=== PATIENT | female | born 1980 | race Caucasian/White ===

== ENCOUNTER 2017-06-05 08:03 | Emergency (ER) | payer MEDICAID ==
[~2017-06-05] VITALS: Ht 162.6 cm; Wt 51.0 kg
[~2017-06-05 08:03] MED LIST: LIPA1TAB3 PO; OXYC5TAB3 PO; SERT25TA3 PO; THYR30TA PO; THYR32.54 PO
[2017-06-05] MEDS ORDERED: SODIUM CHLORIDE 0.9% 1,000 ML IV ONE (08:35)
[2017-06-05] MEDS ORDERED: MORPHINE SULFATE 4 MG/ML, 1ML ONE (08:55)
[2017-06-05] MEDS ORDERED: ONDANSETRON 2MG/ML, 2ML ONE (08:55)
[2017-06-05 08:58] LABS: HEMATOCRIT 43.2 % (34.6-47.8); HEMOGLOBIN 14.8 g/dL (11.7-16.4); WHITE BLOOD COUNT 11.4 x10^3/uL (3.4-10)
[2017-06-05] MEDS ORDERED: SODIUM CHLORIDE 0.9% 1,000ML IVBOLUS ONE (09:00)
[2017-06-05] MEDS ORDERED: ONDANSETRON 2MG/ML, 2ML IVPush ONE (09:00)
[2017-06-05] MEDS ORDERED: MORPHINE SULFATE 4 MG/ML, 1ML IVPush PRN (09:00)
[2017-06-05 09:10] LABS: BLOOD UREA NITROGEN 10 mg/dL (7-18)
[2017-06-05 09:11] LABS: ASPARTATE AMINO TRANSFERASE 24 U/L (15-37)
[2017-06-05 10:39] VITALS: BP 97/52
== END 2017-06-05 10:41 | disposition home or self-care (01) ==
LOC: ED 08:43
DX: K29.00 Acute gastritis without bleeding (principal); E06.3 Autoimmune thyroiditis
CPT/HCPCS: 36415; 80053; 81001; 83690; 84703; 85025; 87086; 96361; 96374; 96375; 99285; J2405; J7030

== ENCOUNTER 2017-06-11 13:51 | Emergency (ER) | payer MEDICAID ==
[~2017-06-11] VITALS: Ht 162.6 cm; Wt 53.6 kg
[2017-06-11 14:55] LABS: BASOPHILS # (AUTO) 0.05 x10^3/uL (0-0.1); BASOPHILS % (AUTO) 1 % (0-1); EOSINOPHILS # (AUTO) 0.72 x10^3/uL (0-0.4); EOSINOPHILS % (AUTO) 8 % (1-7); LYMPHOCYTES # (AUTO) 2.07 x10^3/uL (1-3.4); LYMPHOCYTES % (AUTO) 24 % (22-44); MD NO; MEAN CORPUSCULAR HEMOGLOBIN 31.2 pg (27.0-34.8); MEAN CORPUSCULAR HGB CONC 33.7 g/dL (32.4-35.8); MEAN CORPUSCULAR VOLUME 92.7 fL (80-100); MEAN PLATELET VOLUME 7.6 fL (7.4-10.4); MONOCYTES # (AUTO) 0.34 x10^3/uL (0.2-0.8); MONOCYTES % (AUTO) 4 % (2-9); NEUTROPHILS % (AUTO) 64 % (42-75); PLATELET COUNT 335 x10^3/uL (130-400); RED BLOOD COUNT 4.67 x10^6/uL (3.82-5.3); RED CELL DISTRIBUTION WIDTH 13.6 % (9.6-15.2)
[2017-06-11] MEDS ORDERED: SODIUM CHLORIDE FLUSH 10ML SYR IVF ONE (15:00)
[2017-06-11 15:03] LABS: ANION GAP 6 mmol/L (5-15); CALCIUM 8.9 mg/dL (8.5-10.1); CHLORIDE 107 mmol/L (98-107)
[2017-06-11 15:07] LABS: ALANINE AMINOTRANSFERASE 32 U/L (12-78); ALKALINE PHOSPHATASE 83 U/L (45-117); BILIRUBIN,TOTAL 0.8 mg/dL (0.2-1.0); CREATININE 0.95 mg/dL (0.55-1.02)
[2017-06-11] MEDS ORDERED: FAMOTIDINE 20 MG/2 ML ONE (15:52)
[2017-06-11] MEDS ORDERED: DICYCLOMINE 10 MG/ML, 2ML ONE (15:52)
[2017-06-11] MEDS ORDERED: DICYCLOMINE 10 MG/ML, 2ML IM ONE (16:00)
[2017-06-11] MEDS ORDERED: SODIUM CHLORIDE 0.9% 1,000ML IVBOLUS ONE (16:00)
[2017-06-11] MEDS ORDERED: FAMOTIDINE 20 MG/2 ML IVP ONE (16:00)
[2017-06-11 16:03] LABS: MICROSCOPIC NOT IND
[2017-06-11 16:07] LABS: CULTURE INDICATED? NO
[2017-06-11] MEDS ORDERED: OMNIPAQUE 350 MG/ML, 100ML BOTTLE ONE (16:42)
[2017-06-11 18:14] VITALS: BP 95/62
== END 2017-06-11 18:17 | disposition home or self-care (01) ==
LOC: ED 17:38
DX: R10.84 Generalized abdominal pain (principal)
CPT/HCPCS: 36415; 74177; 76700; 80053; 81003; 83690; 85025; 96361; 96372; 96374; 99285; J0500; J7030; Q9967; S0028